=== PATIENT | female | born 1995 | race Two or more races ===

== ENCOUNTER 2021-07-06 14:45 | Emergency (ER) | payer OTHER ==
[~2021-07-06] VITALS: Ht 154.9 cm; Wt 72.6 kg
[2021-07-06] MEDS ORDERED: CIPRO500 MG PO (18:56)
[2021-07-06] MEDS ORDERED: DICLOFENAC SODI75 MG PO (18:57)
== END 2021-07-06 19:37 | disposition home or self-care (01) ==
LOC: ER 14:45
DX: R10.31 Right lower quadrant pain (principal); Z03.818 Encounter for observation for suspected exposure to other biological agents ruled out
CPT/HCPCS: 74177; Q9965

== ENCOUNTER 2021-09-02 13:33 | Outpatient (CLI) | payer OTHER ==
[~2021-09-02 13:33] MED LIST: CIPRO500 MG PO; DICLOFENAC SODI75 MG PO
== END 2021-09-02 14:33 | disposition home or self-care (01) ==
LOC: ASH CLINIC 13:33
DX: U07.1 COVID-19 (principal); Z23 Encounter for immunization

== ENCOUNTER 2021-09-03 10:07 | Emergency (ER) | payer OTHER ==
[~2021-09-03] VITALS: Ht 154.9 cm; Wt 77.1 kg
== END 2021-09-03 15:08 | disposition home or self-care (01) ==
LOC: ER 10:07
DX: U07.1 COVID-19 (principal); J45.998 Other asthma

== ENCOUNTER 2022-02-16 16:56 | Emergency (ER) | payer OTHER ==
[~2022-02-16] VITALS: Ht 154.9 cm; Wt 83.9 kg
[2022-02-16] MEDS ORDERED: MEDROLPACK PO (20:41)
== END 2022-02-16 20:53 | disposition home or self-care (01) ==
LOC: ER 16:56
DX: G51.0 Bell's palsy (principal); R51.9 Headache, unspecified; R53.81 Other malaise; Z20.822 Contact with and (suspected) exposure to COVID-19

== ENCOUNTER 2023-07-16 17:05 | Emergency (ER) | payer OTHER ==
[~2023-07-16] VITALS: Ht 154.9 cm; Wt 79.4 kg
[~2023-07-16 17:05] MED LIST changes: +MEDROLPACK PO
[2023-07-16] MEDS ORDERED: ATIVAN0.5 M1 PO (17:36)
[2023-07-16] MEDS ORDERED: RESTORIL30 M1 PO (17:37)
[2023-07-16] MEDS ORDERED: SEROQUEL XR150 MG PO (17:37)
[2023-07-16] MEDS ORDERED: DEPAKOTE ER250 MG PO (17:37)
[2023-07-16 20:52] LABS: PH,URINE 7.5 (5.0-8.0); URINE APPEARANCE Clear; URINE BILIRRUBIN Negative (NEGATIVE); URINE BLOOD Negative; URINE COLOR Yellow; URINE GLUCOSE Negative (NEGATIVE); URINE LEUKOCYTE Moderate; URINE NITRATE Negative; URINE PROTEIN Negative (NEGATIVE); URINE UROBILINOGEN 0.2 E.U./dl
[2023-07-16 20:56] LABS: URINE BACTERIA 1727.2 uL (0.0-1933); URINE EPITHELIAL CELLS 134.6 uL (0.0-38.8); URINE RBC 2.1 uL (0.0-20.8); URINE WBC 80.8 uL (0.0-23.2)
[2023-07-16 21:02] LABS: HEMATOCRIT 35.9 % (36.0-45.00); HEMOGLOBIN 12.2 g/dL (12.0-15.00); MEAN CELL VOLUME 86.5 fL (80.00-100.00); MEAN CORPUSCULAR HEMOGLOBIN 29.3 pg (27.00-32.0); MEAN CORPUSCULAR HGB CONC 33.9 g/dl (32.0-36.0); PLATELET COUNT 252 K/uL (150-450); RED BLOOD COUNT 4.15 M/uL (4.00-6.00); RED CELL DISTRIBUTION WIDTH 13.8 % (11.5-14.5)
[2023-07-16 21:16] LABS: CALCIUM 9.4 mg/dL (8.5-10.1); CREATININE SERUM 0.84 mg/dL (0.55-1.02); GFR 81.96; POTASSIUM 4.12 mEq/L (3.5-5.1)
[2023-07-16 21:21] LABS: URINE YEAST MODERATE /hpf
== END 2023-07-17 01:16 | disposition home or self-care (01) ==
LOC: ER 17:05
PROVIDERS: Emergency Medicine
DX: N39.0 Urinary tract infection, site not specified (principal); Z88.8 Allergy status to other drugs, medicaments and biological substances

== ENCOUNTER 2024-05-26 18:56 | Emergency (ER) | payer OTHER ==
[~2024-05-26] VITALS: Ht 154.9 cm; Wt 65.8 kg
[~2024-05-26 18:56] MED LIST changes: +ATIVAN0.5 M1 PO; +DEPAKOTE ER250 MG PO; +RESTORIL30 M1 PO; +SEROQUEL XR150 MG PO
[2024-05-26] MEDS ORDERED: ELMIRON100 MG (19:17)
[2024-05-26 20:29] LABS: HEMATOCRIT 34.8 % (36.0-45.00); HEMOGLOBIN 12.6 g/dL (12.0-15.00); MEAN CELL VOLUME 83.7 fL (80.00-100.00); MEAN CORPUSCULAR HEMOGLOBIN 30.3 pg (27.00-32.0); MEAN CORPUSCULAR HGB CONC 36.2 g/dl (32.0-36.0); PLATELET COUNT 245 K/uL (150-450); RED BLOOD COUNT 4.16 M/uL (4.00-6.00); RED CELL DISTRIBUTION WIDTH 13.1 % (11.5-14.5)
[2024-05-26 20:40] LABS: URINE APPEARANCE Clear; URINE BILIRRUBIN Negative (NEGATIVE); URINE BLOOD Negative; URINE COLOR Yellow; URINE GLUCOSE Negative (NEGATIVE); URINE KETONE 15 (NEGATIVE); URINE LEUKOCYTE Negative; URINE NITRATE Negative; URINE PROTEIN Negative (NEGATIVE)
[2024-05-26 20:43] LABS: URINE BACTERIA 52.9 uL (0.0-1933); URINE EPITHELIAL CELLS 13.9 uL (0.0-38.8); URINE RBC 5.3 uL (0.0-20.8); URINE WBC 6.6 uL (0.0-23.2)
[2024-05-26 21:10] LABS: URINE CAST 0.15 uL (0.0-1.40)
[2024-05-26 21:22] LABS: ALBUMIN 3.9 gm/dL (3.4-5.0); BILIRUBIN TOTAL 0.87 mg/dL (0.3-1.2); CALCIUM 9.2 mg/dL (8.5-10.1); GFR 67.02; GLOBULINA 3.7 G/DL (2.4-3.5); POTASSIUM 3.01 mEq/L (3.5-5.1); TOTAL PROTEIN 7.6 gm/dL (6.4-8.2)
[2024-05-27] MEDS ORDERED: POTASSIUM CHLORIDE 10 MEQ CAPSULE PO ONE (00:15)
[2024-05-27] MEDS ORDERED: KETOROLAC TROMETHAMINE 30 MG VIAL ONE (00:41)
[2024-05-27] MEDS ORDERED: KETOROLAC TROMETHAMINE 15 MG VIAL IV ONE (00:45)
== END 2024-05-27 01:07 | disposition home or self-care (01) ==
LOC: ER 18:57
PROVIDERS: General Practice
DX: R33.8 Other retention of urine (principal)